=== PATIENT | female | born 1945 | race Caucasian/White ===

== ENCOUNTER → 2023-11-28 15:23 | Outpatient (REF) | payer MEDICARE, SELFPAY ==
[2023-11-28 16:20] LABS: % Basophils 0.5 % (0-2); % Eosinophils 1.9 % (0-6); % Immature Granulocytes 0.6 % (0-0.5); % Lymphocytes 13.1 % (20.5-51.1); % Monocytes 5.7 % (1.7-9.3); % Neutrophils 78.2 % (42.2-75.2); Absolute Basophils 0.1 10^3/uL (0-0.2); Absolute Eosinophils 0.2 10^3/uL (0-0.7); Absolute Immature Granulocytes 0.1 10^3/uL (0-0.05); Absolute Lymphocytes 1.6 10^3/uL (1.2-3.4); Absolute Monocytes 0.7 10^3/uL (0.1-0.6); Absolute Neutrophils 9.8 10^3/uL (1.4-6.5); Hematocrit 38.8 % (37.0-47.0); Hemoglobin 12.9 g/dL (12.0-16.0); Mean Corp Hgb Conc. 33.2 g/dL (33.0-37.0); Mean Corpuscular Hgb 30.6 pg (27.0-31.0); Mean Corpuscular Volume 91.9 fL (81.0-99.0); Mean Platelet Volume 8.9 fL (7.4-10.4); Nucleated Red Blood Cells % 0 %; Platelet Count 259 10^3/uL (130-400); Red Blood Cell Count 4.22 10^6/uL (4.20-5.40); Red Cell Dist. Width 13.7 % (11.5-14.5); White Blood Cell Count 12.5 10^3/uL (4.8-10.8)
[2023-11-28 16:33] LABS: Erythrocyte Sed Rate 32 mm/hour (0-20)
[2023-11-28 16:42] LABS: ALT (SGPT) 17 U/L (0-35); AST (SGOT) 26 U/L (14-36); Albumin 3.9 g/dl (3.5-5.0); Alkaline Phosphatase 71 U/L (38-126); Blood Urea Nitrogen 26 mg/dl (7-17); Calcium 9.5 mg/dl (8.4-10.2); Carbon Dioxide 33 mmol/L (22-30); Chloride 97 mmol/L (98-107); Glucose 112 mg/dl (70-99); Potassium 3.8 mmol/L (3.5-5.1); Sodium 135 mmol/L (135-145); Total Bilirubin 1.1 mg/dl (0.2-1.3); Total Protein 6.4 g/dl (6.3-8.2); eGFR > 60.00
[2023-11-28 17:26] LABS: Hepatitis B Surface Antigen Negative (Negative)
[2023-11-28 17:44] LABS: Hepatitis B Core Ab, Total Negative (Negative); Hepatitis B Surface Antibody Positive; Hepatitis C Antibody Negative (Negative)
== END ==
LOC: REG 15:23
PROVIDERS: ATTENDING PHYSICIAN Internal Medicine; FAMILY PHYSICIAN Family Medicine
DX: K75.9 Inflammatory liver disease, unspecified (principal); M31.4 Aortic arch syndrome [Takayasu]; M35.3 Polymyalgia rheumatica; Z22.7 Latent tuberculosis
CPT/HCPCS: 36415; 80053; 85025; 85652; 86140; 86704; 86706; 86803; 87340

== ENCOUNTER → 2024-04-29 16:27 | Outpatient (REF) | payer MEDICARE, SELFPAY ==
[2024-04-29 17:33] LABS: % Basophils 0.4 % (0-2); % Eosinophils 3.3 % (0-6); % Immature Granulocytes 0.6 % (0-0.5); % Lymphocytes 18.9 % (20.5-51.1); % Monocytes 6.5 % (1.7-9.3); % Neutrophils 70.3 % (42.2-75.2); Absolute Eosinophils 0.3 10^3/uL (0-0.7); Absolute Immature Granulocytes 0.1 10^3/uL (0-0.05); Absolute Lymphocytes 1.9 10^3/uL (1.2-3.4); Absolute Monocytes 0.7 10^3/uL (0.1-0.6); Absolute Neutrophils 7.2 10^3/uL (1.4-6.5); Hematocrit 37.9 % (37.0-47.0); Hemoglobin 12.4 g/dL (12.0-16.0); Mean Corp Hgb Conc. 32.7 g/dL (33.0-37.0); Mean Corpuscular Hgb 30.1 pg (27.0-31.0); Mean Platelet Volume 9.4 fL (7.4-10.4); Nucleated Red Blood Cells % 0 %; Platelet Count 251 10^3/uL (130-400); Red Blood Cell Count 4.12 10^6/uL (4.20-5.40); Red Cell Dist. Width 14.4 % (11.5-14.5); White Blood Cell Count 10.3 10^3/uL (4.8-10.8)
[2024-04-29 17:42] LABS: Erythrocyte Sed Rate 41 mm/hour (0-20)
[2024-04-29 17:48] LABS: Blood Urea Nitrogen 24 mg/dl (7-17)
[2024-04-29 17:49] LABS: ALT (SGPT) 16 U/L (0-35); AST (SGOT) 26 U/L (14-36); Albumin 3.9 g/dl (3.5-5.0); Alkaline Phosphatase 70 U/L (38-126); Blood Urea Nitrogen 24 mg/dl (7-17); Calcium 9.8 mg/dl (8.4-10.2); Carbon Dioxide 35 mmol/L (22-30); Chloride 97 mmol/L (98-107); Glucose 105 mg/dl (70-99); HDL Cholesterol 54 mg/dl; LDL Cholesterol, Calculated 60 mg/dl; Potassium 3.8 mmol/L (3.5-5.1); Sodium 137 mmol/L (135-145); Total Bilirubin 1.1 mg/dl (0.2-1.3); Total Cholesterol 144 mg/dl (50-199); Total Protein 6.2 g/dl (6.3-8.2); Triglyceride 154 mg/dl (10-149); Very Low Density Lipoprotein 30 mg/dl (0-30); eGFR 58.02
[2024-04-30 09:25] LABS: Glycohemoglobin (HgbA1c) 6.4 % (4.0-5.6)
== END ==
LOC: REG 16:27
PROVIDERS: ATTENDING PHYSICIAN Family Medicine; OTHER PHYSICIAN Internal Medicine; OTHER PHYSICIAN Internal Medicine Cardiovascular Disease; OTHER PHYSICIAN Nurse Practitioner; OTHER PHYSICIAN Thoracic Surgery (Cardiothoracic Vascular Surgery)
DX: M35.3 Polymyalgia rheumatica (principal); F41.1 Generalized anxiety disorder; E78.5 Hyperlipidemia, unspecified; R21 Rash and other nonspecific skin eruption; R73.01 Impaired fasting glucose; I71.20 Thoracic aortic aneurysm, without rupture, unspecified; I35.9 Nonrheumatic aortic valve disorder, unspecified
CPT/HCPCS: 36415; 80053; 80061; 82565; 83036; 84520; 85025; 85652; 86140

== ENCOUNTER → 2024-06-30 16:32 | Outpatient (REF) | payer MEDICARE, SELFPAY ==
[2024-06-30 17:14] LABS: % Basophils 0.5 % (0-2); % Eosinophils 2.3 % (0-6); % Immature Granulocytes 0.7 % (0-0.5); % Lymphocytes 16.5 % (20.5-51.1); % Monocytes 7.9 % (1.7-9.3); % Neutrophils 72.1 % (42.2-75.2); Absolute Basophils 0.1 10^3/uL (0-0.2); Absolute Eosinophils 0.2 10^3/uL (0-0.7); Absolute Immature Granulocytes 0.1 10^3/uL (0-0.05); Absolute Lymphocytes 1.6 10^3/uL (1.2-3.4); Absolute Monocytes 0.8 10^3/uL (0.1-0.6); Absolute Neutrophils 7.1 10^3/uL (1.4-6.5); Hematocrit 41.5 % (37.0-47.0); Hemoglobin 13.6 g/dL (12.0-16.0); Mean Corp Hgb Conc. 32.8 g/dL (33.0-37.0); Mean Corpuscular Hgb 30.5 pg (27.0-31.0); Mean Platelet Volume 9.2 fL (7.4-10.4); Nucleated Red Blood Cells % 0 %; Platelet Count 216 10^3/uL (130-400); Red Blood Cell Count 4.46 10^6/uL (4.20-5.40); Red Cell Dist. Width 15.1 % (11.5-14.5); White Blood Cell Count 9.8 10^3/uL (4.8-10.8)
[2024-06-30 17:20] LABS: Erythrocyte Sed Rate 12 mm/hour (0-20)
[2024-06-30 17:33] LABS: ALT (SGPT) 20 U/L (0-35); AST (SGOT) 26 U/L (14-36); Albumin 4.2 g/dl (3.5-5.0); Alkaline Phosphatase 57 U/L (38-126); Blood Urea Nitrogen 31 mg/dl (7-17); Calcium 9.8 mg/dl (8.4-10.2); Carbon Dioxide 39 mmol/L (22-30); Chloride 96 mmol/L (98-107); Glucose 99 mg/dl (70-99); Potassium 3.2 mmol/L (3.5-5.1); Sodium 141 mmol/L (135-145); Total Protein 6.4 g/dl (6.3-8.2); eGFR > 60.00
== END ==
LOC: REG 16:32
PROVIDERS: ATTENDING PHYSICIAN Internal Medicine; FAMILY PHYSICIAN Family Medicine; REFERRING PHYSICIAN Internal Medicine Cardiovascular Disease
DX: M31.4 Aortic arch syndrome [Takayasu] (principal); M31.6 Other giant cell arteritis; M35.3 Polymyalgia rheumatica
CPT/HCPCS: 36415; 80053; 85025; 85652; 86140

== ENCOUNTER → 2024-12-15 16:53 | Outpatient (REF) | payer MEDICARE, SELFPAY ==
[2024-12-15 17:27] LABS: % Basophils 0.4 % (0-2); % Eosinophils 3.4 % (0-6); % Immature Granulocytes 0.2 % (0-0.5); % Lymphocytes 17.4 % (20.5-51.1); % Monocytes 6.2 % (1.7-9.3); % Neutrophils 72.4 % (42.2-75.2); Absolute Eosinophils 0.3 10^3/uL (0-0.7); Absolute Lymphocytes 1.5 10^3/uL (1.2-3.4); Absolute Monocytes 0.5 10^3/uL (0.1-0.6); Hematocrit 40.4 % (37.0-47.0); Hemoglobin 13.2 g/dL (12.0-16.0); Mean Corp Hgb Conc. 32.7 g/dL (33.0-37.0); Mean Corpuscular Hgb 32.3 pg (27.0-31.0); Mean Corpuscular Volume 98.8 fL (81.0-99.0); Nucleated Red Blood Cells % 0 %; Platelet Count 253 10^3/uL (130-400); Red Blood Cell Count 4.09 10^6/uL (4.20-5.40); Red Cell Dist. Width 13.1 % (11.5-14.5); White Blood Cell Count 8.3 10^3/uL (4.8-10.8)
[2024-12-15 17:42] LABS: ALT (SGPT) 17 U/L (0-35); AST (SGOT) 25 U/L (14-36); Albumin 3.9 g/dl (3.5-5.0); Alkaline Phosphatase 64 U/L (38-126); Blood Urea Nitrogen 24 mg/dl (7-17); Calcium 9.9 mg/dl (8.4-10.2); Carbon Dioxide 37 mmol/L (22-30); Chloride 97 mmol/L (98-107); Glucose 121 mg/dl (70-99); Potassium 3.8 mmol/L (3.5-5.1); Sodium 138 mmol/L (135-145); Total Bilirubin 1.1 mg/dl (0.2-1.3); Total Protein 6.2 g/dl (6.3-8.2); eGFR > 60.00
[2024-12-15 17:46] LABS: Erythrocyte Sed Rate 17 mm/hour (0-20)
== END ==
LOC: REG 16:53
PROVIDERS: ATTENDING PHYSICIAN Internal Medicine; FAMILY PHYSICIAN Family Medicine; OTHER PHYSICIAN Internal Medicine Cardiovascular Disease
DX: M31.6 Other giant cell arteritis (principal); Z51.81 Encounter for therapeutic drug level monitoring
CPT/HCPCS: 36415; 80053; 85025; 85652; 86140

== ENCOUNTER → 2025-04-29 16:38 | Outpatient (REF) | payer MEDICARE, SELFPAY ==
[2025-04-29 17:00] LABS: Hematocrit 35.9 % (37.0-47.0); Hemoglobin 12.1 g/dL (12.0-16.0); Mean Corp Hgb Conc. 33.7 g/dL (33.0-37.0); Mean Corpuscular Volume 94.7 fL (81.0-99.0); Nucleated Red Blood Cells % 0 %; Platelet Count 276 10^3/uL (130-400); Red Cell Dist. Width 12.4 % (11.5-14.5)
[2025-04-29 17:20] LABS: ALT (SGPT) 11 U/L (0-35); AST (SGOT) 17 U/L (14-36); Albumin 3.8 g/dl (3.5-5.0); Alkaline Phosphatase 60 U/L (38-126); Blood Urea Nitrogen 22 mg/dl (7-17); Calcium 10.0 mg/dl (8.4-10.2); Carbon Dioxide 32 mmol/L (22-30); Chloride 99 mmol/L (98-107); Glucose 117 mg/dl (70-99); Potassium 4.1 mmol/L (3.5-5.1); Sodium 137 mmol/L (135-145); Total Protein 6.4 g/dl (6.3-8.2); eGFR > 60.00
[2025-04-29 17:23] LABS: C-Reactive Protein 42.70 mg/L (0.0-10.00)
== END ==
LOC: REG 16:38
PROVIDERS: ATTENDING PHYSICIAN Internal Medicine; FAMILY PHYSICIAN Family Medicine
DX: M31.6 Other giant cell arteritis (principal); M35.3 Polymyalgia rheumatica
CPT/HCPCS: 36415; 80053; 85025; 85652; 86140

== ENCOUNTER → 2025-05-11 14:44 | Outpatient (REF) | payer MEDICARE, SELFPAY ==
[2025-05-11 16:08] LABS: Hematocrit 37.4 % (37.0-47.0); Hemoglobin 12.2 g/dL (12.0-16.0); Mean Corp Hgb Conc. 32.6 g/dL (33.0-37.0); Mean Corpuscular Volume 97.7 fL (81.0-99.0); Nucleated Red Blood Cells % 0 %; Platelet Count 278 10^3/uL (130-400); Red Cell Dist. Width 12.6 % (11.5-14.5)
[2025-05-11 16:36] LABS: ALT (SGPT) 11 U/L (0-35); AST (SGOT) 18 U/L (14-36); Albumin 3.9 g/dl (3.5-5.0); Alkaline Phosphatase 64 U/L (38-126); Blood Urea Nitrogen 21 mg/dl (7-17); Calcium 9.6 mg/dl (8.4-10.2); Carbon Dioxide 34 mmol/L (22-30); Chloride 97 mmol/L (98-107); Glucose 121 mg/dl (70-99); Potassium 4.2 mmol/L (3.5-5.1); Sodium 137 mmol/L (135-145); Total Protein 6.6 g/dl (6.3-8.2); eGFR 57.66
[2025-05-11 16:38] LABS: C-Reactive Protein 30.60 mg/L (0.0-10.00)
== END ==
LOC: REG 14:44
PROVIDERS: ATTENDING PHYSICIAN Family Medicine
DX: D72.829 Elevated white blood cell count, unspecified (principal); R79.82 Elevated C-reactive protein (CRP)
CPT/HCPCS: 36415; 80053; 85025; 86140; 87040